=== PATIENT | female | born 1980 | race Caucasian/White ===

== ENCOUNTER → 2017-04-09 | Outpatient (CLI) | payer OTHER ==
[~2017-04-09] MED LIST: ESOM40CA42 PO; KET10 PO; LEVO1TAB48 PO; PER PO
--- NOTE | 2017-04-09 14:39 | RADIOLOGY IMAGING REPORT ---
FACILITY: [facility] [place] PATIENT NAME: BONNIE CURRY : [id number] MR: [id number] V: [id number] EXAM DATE: ORDERING PHYSICIAN: ANDRÉS GENAO TECHNOLOGIST: Mary Liz PROCEDURE:BILATERAL DIGITAL SCREENING MAMMOGRAM WITH CAD ASSISTED INTERPRETATION & 3D BREAST TOMOSYNTHYSIS COMPARISON:Prior mammograms 09/29/13. INDICATIONS:SCREENING FINDINGS: There is predominant fatty replacement throughout the breasts. The parenchymal pattern has remained stable when allowing for difference in mammographic technique & patient positioning. There is no evidence of malignant appearing mass, malignant appearing calcification or secondary sign of malignancy in either breast. DIAGNOSTIC CATEGORY 1--NEGATIVE. RECOMMENDATIONS: ROUTINE MAMMOGRAM AND CLINICAL EVALUATION. IMPRESSION: BIRADS 1: Negative 1. No significant abnormality is seen Dictated by: Sheila Humphreys M.D. on 04/09/2017 at 9:01 Transcribed by: MADELEINE on 04/09/2017 at 9:16 Approved by: Sheila Humphreys M.D. on 04/09/2017 at 14:38 [facility]
== END ==
LOC: MAMO 00:52
PROVIDERS: ATTEND Nurse Practitioner
DX: Z12.31 Encounter for screening mammogram for malignant neoplasm of breast (principal)
CPT/HCPCS: 77063; 77067